=== PATIENT | female | born 1990 | race Caucasian/White ===

== ENCOUNTER 2021-07-23 13:39 | Observation (INO) | payer OTHER, SELFPAY ==
[2021-07-23] MEDS: Lactated Ringers 1,000 ML 125 ML IV (14:00)
[2021-07-23 14:26] VITALS: RESP 22; TEMP 37
--- NOTE | 2021-07-23 14:30 | DI.US_ITS ---
Exam(s) US OB NICOLE WEIGHT EXAM: US OB NICOLE WEIGHT CLINICAL HISTORY: r o abruption. TECHNIQUE: Transabdominal obstetrical ultrasound performed. COMPARISON: US US OB 2-3 TRIMESTER from 05/21/2021 US US OB 2-3 TRIMESTER from 05/21/2021 FINDINGS:: Number of fetuses: One. position: Breech Placental location: Fundal and left-sided. No evidence of previa. No evidence of abruption. Cervix appears intact BIOMETRIC DATA: BPD: 68mm = 27+ 2 weeks HC: 262mm = 28+ 4 weeks AC: 239mm = 28+ 1 weeks FL: 53 mm = 28+ 0 weeks EFW: 1170 Gms = 29% Composite Age: 28 weeks EDC: 15 October 2021 Heart Rate: 149BPM Amniotic fluid index: 11.3 cm. Amount of fluid is within normal limits. IMPRESSION: size and weight are within the expected range. No evidence of abruption. DATA REPOSITORY:
[2021-07-23 14:44] VITALS: BP 118/60; PULSE 89
[2021-07-23 14:45] LABS: HGB 11.8 g/dL (11.2-15.7); MCH 28.6 pg (27.0-33.0); MCHC 32.8 % (32.0-36.0); MCV 87.2 fL (80-95); MPV 10.5 fL (8.0-11.0); Platelet Count 322 10^3/uL (130-400); RBC 4.13 10^6/uL (3.93-5.22); RDW 13.8 % (11.7-14.6); RDW-SD 43.9 fL; WBC 14.57 10^3/uL (4.4-10.8)
--- NOTE | 2021-07-23 15:03 | W.OBCONSULT ---
Date of service: 07/23/21 Time of Service: 15:04 Assessment and Plan Assessment and plan (1) uterine contractions: Status: Acute Assessment and plan: Patient is having irregular contractions without appreciable cervical dilation at this point. She will have his baseline laboratory studies including a urinalysis and urine drug screen. Have ultrasound performed to evaluate placental location and position along with amniotic fluid index. She has received 1 dose of betamethasone. She will have IV hydration. If she continues to have contractions will make cervical change, trial of magnesium washout may be undertaken. If she has need for magnesium sulfate for toco lysis, transfer to tertiary care center would be prudent. Currently, [facility] unable to accept transfer due to nursing past the issues. Patient is not a current candidate for a fibronectin exam due to cervical check. We may reevaluate this in 24 hours. She will be n.p.o. for now. (2) Vaginal bleeding during , antepartum: Status: Acute Assessment and plan: Resolved (3) 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 in third trimester, antepartum: Status: Acute (4) Smoker: Status: Acute (5) Obesity (BMI 30-39.9): Status: Acute History of Present Illness History of Present Illness Chief Complaint: Uterine contractions Narrative: Kindly asked to see by family practice this 31-year-old 17 para 2 0 14 2 who was seen in the primary care office today. She has been getting care at [facility]. She reports 1 week of vaginal spotting and bleeding and approximately 24 hours of uterine activity with irregular contractions. She states that they are becoming more comfortable. On her visit with monitoring at the office was noted to have some uterine contractions. Cervical exam performed there was cervix to be approximately 1 cm 50%. She was sent to our facility today for further monitoring and potential intervention. Preference would have been for tertiary care center, however closest facility being [facility] had no availability in the nursery for potential care of a at 28 weeks. She is sent here as closest facility. On questioning, patient denies fevers or chills. She has had intermittent diarrhea. She has no urinary symptoms. She is 1/2 pack a day smoker. She denies illicit drug use. She states that her care has otherwise been uncomplicated. 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 Her youngest child is 10 years old. Both of her babies were born 5 days prior to her due date without significant complication or issue. She denies any recent trauma, increase in activities, or constitutional symptoms. She states that her baby's been moving and active. She denies loss of fluid. She has no signs or symptoms of preeclampsia though apparently with 1 previous delivery did have some issue with elevated blood pressures. Consults Consult date: 07/23/21 Requesting physician: Robby Farr Review of Systems All systems reviewed & are unremarkable except as noted in HPI and below Constitutional Constitutional: Reports as per HPI, Denies body ache(s), Denies chills, Denies excessive sweating, Denies fatigue, Denies headache(s), Denies malaise, Denies poor appetite and Denies weakness Eyes Eyes: Reports system reviewed and no additional complaints, except as documented ENT Ears, Nose, Mouth, and Throat: Reports system reviewed and no additional complaints, except as documented and Denies headache(s) Cardiovascular Cardiovascular: Reports system reviewed and no additional complaints, except as documented Respiratory Respiratory: Reports system reviewed and no additional complaints, except as documented Gastrointestinal Gastrointestinal: Reports system reviewed and no additional complaints, except as documented, Denies abdominal pain, Reports diarrhea, Reports loose stools, Denies nausea and Denies vomiting Genitourinary Genitourinary: Reports system reviewed and no additional complaints, except as documented and Reports as per HPI Comments: Somewhat painful, irregular contractions Musculoskeletal Musculoskeletal: Reports system reviewed and no additional complaints, except as documented Neurologic Neurologic: Reports system reviewed and no additional complaints, except as documented, Denies headache(s) and Denies weakness Endocrine Endocrine: Reports system reviewed and no additional complaints, except as documented, Denies excessive sweating and Denies fatigue [facility] Medical History (Updated 07/23/21 @ 15:08 by Janet Strong DO) Obesity (BMI 30-39.9) uterine contractions 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 in third trimester, antepartum Smoker Vaginal bleeding during , antepartum Surgical History (Updated 07/23/21 @ 15:09 by Janet Strong DO) History of dilation and curettage Social History Smoking/Tobacco Use Status: Current every day Tobacco Type: cigarettes Tobacco: How many years used: 12 Smoking risk assessment performed?: Yes Drug use: Never History History 17 Para Hx # Term Pregnancies 2 Multiple births Hx # Pregnancies Ectopic pregnancies AB induced Hx Number of Living Children 2 AB spontaneous 14 Exam Narrative Exam Narrative: Patient seen and examined while on the monitor. Baby is moving and active. heart rate tracing reviewed. Occasional irregular contractions. Patient appears somewhat uncomfortable with contractions though they are nonpalpable Const General: cooperative, no acute distress and well developed Nutritional Appearance: obese Orientation: alert and oriented x3 Eyes General: appearance normal, both eyes and all related structures Neck Neck: normal visual inspection and supple Resp Effort & Inspection: normal respiratory effort Cardio Rate: regular rate GI Inspection: normal to inspection and non-distended Palpation: soft, not firm, no guarding and no masses Auscultation: normal bowel sounds OB/External & Speculum: no bleeding and no vulvar tenderness Manual OB Exam: dilated fingertip, effaced 50%, station high and other (No appreciable presenting part) Skin General skin exam: no rashes or lesions noted Extrem General: no clubbing, cyanosis or edema Results Last Vital Signs Temp 98.6 F 07/23/21 14:26 Pulse 89 07/23/21 14:44 Resp 22 07/23/21 14:26 BP 118/60 07/23/21 14:44 Labs Result diagrams: 07/23/21 14:33 Labs: Laboratory Results - last 24 hr 07/23/21 14:33 WBC 14.57 H RBC 4.13 Hgb 11.8 Hct 36.0 MCV 87.2 MCH 28.6 MCHC 32.8 RDW 13.8 Plt Count 322 MPV 10.5
[2021-07-23] MEDS: Betamet Acet/Betamet Na Ph Inj. 30 MG/5 ML 12 MG IM (15:16)
--- NOTE | 2021-07-23 16:35 | DI.VRAD_ITS ---
PROCEDURE INFORMATION: Exam: US , Limited Exam date and time: 07/23/2021 3:46 PM Age: 31 years old Clinical indication: Lmp or gestational age (in weeks): 28+2; Antepartum complications; Other: Cramping \T\ mild bleeding at 28 weeks gestation; TECHNIQUE: Imaging protocol: Real-time ultrasound of the maternal uterus with image documentation. Exam focused on the clinical indication. COMPARISON: US OB 2-3 TRIMESTER 05/21/2021 10:30 AM FINDINGS: Gestation: There is a single live intrauterine gestation. lie: The fetus was in a breech lie at the time of the examination. heart rate: The heart rate was 149 bpm. Placenta: The placenta is fundal. Amniotic fluid index: The amniotic fluid index is within normal limits measuring 11.3 cm. BIOMETRY: Gestational age (AUA): The gestational age based on measurements is 28 weeks and 0 days. The estimated date of delivery based on ultrasound measurements is 10/15/2021. There is concordance with the last menstrual period of 01/06/2021 with a gestational age of 28 weeks and 2 days. Estimated weight: The estimated weight is 1170 g or 2 lb and 9 oz. This is at the 29th percentile. Biparietal diameter: The biparietal diameter measured 6.8 cm corresponding to a gestational age of 27 weeks and 2 days. Head circumference: The head circumference measures 26.2 cm corresponding to a gestational age of 28 weeks and 4 days. Abdominal circumference: The abdominal circumference measured 23.9 cm corresponding to a gestational age of 28 weeks and 1 day. Femur length: The femur length measured 5.3 cm corresponding to a gestational age of 20 weeks and 0 days. IMPRESSION: Single live intrauterine gestation as described above. Please see discussion above. Dictated and Authenticated by: Dickson Adame MD. Ordering:NICOLA Bustamante MD
[2021-07-23 16:40] VITALS: BP 114/56; PULSE 83
--- NOTE | 2021-07-23 17:23 | HPE_ITS ---
Date of service: 07/23/21 Time of Service: 17:23 Assessment and Plan Assessment and plan (1) Vaginal bleeding during , antepartum: Status: Acute Assessment and plan: see below (2) uterine contractions: Status: Acute Assessment and plan: Ultrasound was reassuring without abruption or subchorionic hemorrhage. Baby is breach. She was given 12mg Betamethasone and monitored as well as given IV fluids. Contractions did resolve and she had no cervical change. She has now had no contractions for the last 2 hours. She will be discharged home with strict instructions to call should contractions return. I will follow up with her in clinic on . She was comfortable w ith this plan. OB-HPI Labor/Delivery History of Present Illness Reason for Visit: r/o labor Chief Complaint: Uterine Contractions. RICHARD Calculator Estimated Delivery Date Method Current WG Current Estimate 10/13/21 LMP (Certain) 28w 2d Comments: Breonna is a at 28.2w who presented to clinic this morning with complaints of spotting for a week and contractions for 2 days. She reported bleeding when she wiped or occasionally on the pad. She is feeling movement. Contractions have been increasingly strong for the last 2 days and coming frequently. No recent intercourse or falls. In clinic SVE 11/19/marilu, contractions every 2-3 min lasting 60 sec. I discussed the case with MFM at [facility] [place] who agreed she needed to be monitored however their nursery is full. Dr Strong agreed we could monitor here with IM betamethasone and IV fluids so she presented here. [facility] Medical History (Updated 07/23/21 @ 15:08 by Janet Strong DO) Obesity (BMI 30-39.9) uterine contractions 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 in third trimester, antepartum Smoker Vaginal bleeding during , antepartum Surgical History (Updated 07/23/21 @ 15:09 by Janet Strong DO) History of dilation and curettage Social History Smoking/Tobacco Use Status: Current every day Tobacco Type: cigarettes Years smoked: 12 Tobacco: How many years used: 12 Smoking risk assessment performed?: Yes Alcohol Intake: never Drug use: Never Substance use type: does not use History History 17 Para Hx # Term Pregnancies 2 Multiple births Hx # Pregnancies Ectopic pregnancies AB induced Hx Number of Living Children 2 AB spontaneous 14 Meds Allergies and Home Medications Allergies Allergy/AdvReac Type Severity Reaction Status Date / Time nortriptyline Allergy Intermediate Agitation Unverified 07/23/21 17:33 Home Medications Medication Instructions Recorded Confirmed Type fluoxetine 10 mg PO DAILY 02/04/13 08/14/13 History levonorgestrel [Mirena] 1 ea INTRAUTERINE 02/04/13 08/14/13 History penicillin V potassium 500 mg PO QID #40 tablet 02/04/13 08/14/13 Rx tramadol 50 mg PO Q4H PRN PRN #14 tab 02/04/13 08/14/13 Rx azithromycin 250 mg PO DIRECTED #6 tablet 08/14/13 Rx promethazine-codeine 5 ml PO Q4H #3 oz 08/14/13 Rx Exam Physical Exam Vital signs: Temp Pulse Resp BP 37 C 83 22 114/56 L 07/23/21 14:26 07/23/21 16:40 07/23/21 14:26 07/23/21 16:40 Vital Signs Reviewed: Yes Constitutional Constitutional: no acute distress Detailed Labor and Delivery Exam Dilation: 1 Effacement (%): 10 station: -4 Cervix position: posterior Consistency: firm Anand Score: Cervical Points Exam 0 1 2 3 Dilation Closed 1-2cm 3-4 cm 5-6cm Effacement 0-30% 40-50% 60-70% 80% Consistency Firm Medium Soft Station -3 -2 -1,0 +1,+2 Position Posterior Mid Anterior ANAND Score(Cervical Ripeness Score): 1 Amniotic Membrane Status: Intact Monitor Mode: External Contraction Frequency(min): 3 Contraction Duration(sec): 60 Contraction Intensity: Mild/Moderate Fetus A Heart Rate Baseline: 155 Monitor Accelerations: 10 X 10 Monitor Decelerations: None Variability: Moderate (6-25 BPM) Respiratory Exam Respiratory Exam: Normal Cardiovascular Exam Cardiovascular Exam: Normal Abdominal Exam Abdominal Exam: Normal Exam Exam: Normal Results Abnormal Lab Findings: Abnormal Labs 07/23/21 14:33 WBC 14.57 H Risk Assessment Risks Reviewed Risks Reviewed Upon Admission: Yes
[2021-07-23 22:51] LABS: Bilirubin Negative (Negative); Blood Negative (Negative); Clarity Clear (Clear); Glucose Negative (Negative); Ketones 15 mg/dL (Negative); Leukocyte Esterase Negative (Negative); Nitrite Negative (Negative); Urobilinogen 0.2 EU/dL (Up TO 0.2); pH 7.5 (5-8)
== END 2021-07-23 17:45 | disposition home or self-care (01) ==
PROVIDERS: Admitting Provider Family Medicine; Visit Provider Family Medicine
DX: O47.03 False labor before 37 completed weeks of gestation, third trimester (principal); O46.93 Antepartum hemorrhage, unspecified, third trimester; O99.333 Smoking (tobacco) complicating pregnancy, third trimester; Z3A.28 28 weeks gestation of pregnancy; O99.213 Obesity complicating pregnancy, third trimester; E66.9 Obesity, unspecified; F17.210 Nicotine dependence, cigarettes, uncomplicated
CPT/HCPCS: 36415; 76816; 85027; 86850; 86900; 86901; 96360; 96361; 81003; G0378; J0702

== ENCOUNTER 2021-08-17 16:18 | Observation (INO) | payer OTHER, SELFPAY ==
[2021-08-17] VITALS (8 sets, daily range): BP systolic 106–114; BP diastolic 56–66; PULSE 83–92; RESP 16; TEMP 36.6–36.8; O2SAT 94–99
[2021-08-17 16:46] LABS: HCT 35.1 % (36.0-46.0); HGB 11.5 g/dL (11.2-15.7); MCH 28.5 pg (27.0-33.0); MCHC 32.8 % (32.0-36.0); MCV 86.9 fL (80-95); MPV 10.2 fL (8.0-11.0); Platelet Count 343 10^3/uL (130-400); RBC 4.04 10^6/uL (3.93-5.22); RDW 14.2 % (11.7-14.6); RDW-SD 44.9 fL; WBC 17.97 10^3/uL (4.4-10.8)
[2021-08-17 17:09] LABS: ROM Plus Negative
--- NOTE | 2021-08-17 17:12 | NUR.NOTE ---
OBEY, Rn placed IV in left hand. LR running at 500 ml (bolus) per MD JOLANTA tele orer at 1700. Nursing Note:
--- NOTE | 2021-08-17 17:53 | W.PM.OBHPL1 ---
Date of service: 08/17/21 Time of Service: 17:53 Assessment and Plan Assessment and plan (1) Obesity (BMI 30-39.9): Status: Acute (2) uterine contractions: Status: Acute (3) 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 in third trimester, antepartum: Status: Acute (4) : Status: Acute Assessment and plan: Breonna is seen for contractions and possible PPROM. ROM+ was negative, exam consistent with vaginal candidiasis,which we will treat with Monistat. IV was placed an 1L LR given as a bolus for contractions x2. Feta fibronectin negative as was COVID PCR negative. After 1500cc of fluid in, contractions resolved. We discussed increased daily hydration at home. After no contractions for more than 90min, she was discharged home. She knows to call if contractions return. Qualifiers: Weeks of gestation: 31 weeks Qualified Code(s): Z3A.31 - 31 weeks gestation of OB-HPI Labor/Delivery History of Present Illness Reason for Visit: Rule out labor Chief Complaint: Uterine Contractions; Suspected Rupture of Membranes , Associated Signs and Symptoms of Suspected ROM: gush of fluid. RICHARD Calculator Estimated Delivery Date Method Current WG Current Estimate 10/13/21 LMP (Certain) 31w 6d Comments: Breonna is a at 31.6w who presented to clinic this afternoon with contractions for the last 2 days and concern for SROM. In clinic, she was feliciano irregularly. Sterile spec exam showed closed cervix, no pooling, nitrizine negative. However given she had a similar presentation several weeks ago, and her ongoing contractions, she was sent here for monitoring. She was also complaining of decreased movement. ON LICENSE OF [facility] Medical History (Updated 08/17/21 @ 17:59 by Robby Farr) Obesity (BMI 30-39.9) uterine contractions 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 in third trimester, antepartum Smoker Vaginal bleeding during , antepartum Surgical History (Updated 07/23/21 @ 15:09 by Janet Strong DO) History of dilation and curettage Social History Smoking/Tobacco Use Status: Current every day Tobacco Type: cigarettes Years smoked: 12 Tobacco: How many years used: 12 Smoking risk assessment performed?: Yes Alcohol Intake: never Drug use: Never Substance use type: does not use History History 17 Para Hx # Term Pregnancies 2 Multiple births Hx # Pregnancies Ectopic pregnancies AB induced Hx Number of Living Children 2 AB spontaneous 14 Meds Allergies and Home Medications Allergies Allergy/AdvReac Type Severity Reaction Status Date / Time amitriptyline Allergy Intermediate Agitation Unverified 07/23/21 19:04 nortriptyline Allergy Intermediate Agitation Unverified 07/23/21 17:33 Home Medications Medication Instructions Recorded Confirmed Type fluoxetine 10 mg PO DAILY 02/04/13 08/14/13 History levonorgestrel [Mirena] 1 ea INTRAUTERINE 02/04/13 08/14/13 History penicillin V potassium 500 mg PO QID #40 tablet 02/04/13 08/14/13 Rx tramadol 50 mg PO Q4H PRN PRN #14 tab 02/04/13 08/14/13 Rx azithromycin 250 mg PO DIRECTED #6 tablet 08/14/13 Rx promethazine-codeine 5 ml PO Q4H #3 oz 08/14/13 Rx aspirin [Aspirin For Children] 81 mg PO 07/23/21 History [id number] 1 tab PO 07/23/21 History [ + Iron] Exam Physical Exam Vital signs: Temp Pulse BP Pulse Ox 36.8 C 90 114/56 L 94 08/17/21 17:40 08/17/21 16:32 08/17/21 16:32 08/17/21 16:30 Vital Signs Reviewed: Yes Constitutional Constitutional: mild distress Detailed Labor and Delivery Exam Dilation: 0 station: -4 Cervix position: posterior Arce Score: Cervical Points Exam 0 1 2 3 Dilation Closed 1-2cm 3-4 cm 5-6cm Effacement 0-30% 40-50% 60-70% 80% Consistency Firm Medium Soft Station -3 -2 -1,0 +1,+2 Position Posterior Mid Anterior Amniotic Membrane Status: Intact ROM Plus: Negative Monitor Mode: External Contraction Frequency(min): 4 Contraction Duration(sec): 60 Contraction Intensity: Mild Fetus A Heart Rate Baseline: 150 Monitor Accelerations: 15 X 15 Monitor Decelerations: None Variability: Moderate (6-25 BPM) Categories: Category I HEENT Exam HEENT Exam: Normal Breast Exam Breast Exam: Normal Respiratory Exam Respiratory Exam: Normal Cardiovascular Exam Cardiovascular Exam: Normal Abdominal Exam Abdominal Exam: Normal Extremities Exam Extremities Exam: Normal Neurological Exam Neurological Exam: Normal Psychiatric Exam Psychiatric Exam: Normal Results Abnormal Lab Findings: Abnormal Labs 08/17/21 16:35 WBC 17.97 H Hct 35.1 L Risk Assessment Risk for Pre-Eclampsia Daily Dose ASA Indicated: Yes Risks Reviewed Risks Reviewed Upon Admission: Yes
[2021-08-17 17:55] LABS: Source Nasal/Nares
[2021-08-17 18:04] LABS: Bilirubin Negative (Negative); Blood Negative (Negative); Clarity Clear (Clear); Glucose Negative (Negative); Ketones 15 mg/dL (Negative); Leukocyte Esterase Negative (Negative); Nitrite Negative (Negative)
[2021-08-17 18:06] LABS: Fetal Fibronectin Negative (Negative)
[2021-08-17 18:44] LABS: COVID-19 PCR Negative (Negative)
== END 2021-08-17 20:00 ==
LOC: OBS 08-20 10:38
PROVIDERS: Admitting Provider Family Medicine; Visit Provider Family Medicine
DX: O47.03 False labor before 37 completed weeks of gestation, third trimester (principal); Z3A.31 31 weeks gestation of pregnancy; O99.333 Smoking (tobacco) complicating pregnancy, third trimester; F17.210 Nicotine dependence, cigarettes, uncomplicated; O99.213 Obesity complicating pregnancy, third trimester; E66.9 Obesity, unspecified
CPT/HCPCS: 84112; 85027; 86850; 86900; 86901; 87635; 96360; 81003; 82731

== ENCOUNTER 2021-09-17 20:25 | Observation (INO) | payer OTHER, SELFPAY ==
[2021-09-17 21:47] LABS: Source Nasal/Nares
[2021-09-17 22:02] LABS: ROM Plus Negative
[2021-09-17 22:07] VITALS: BP 100/54; PULSE 82; RESP 16; TEMP 36.5
--- NOTE | 2021-09-17 22:10 | HPE_ITS ---
Date of service: 09/17/21 Time of Service: 22:10 Assessment and Plan Assessment and plan (1) : Status: Acute Assessment and plan: After 1L LR bolus, Myles contractions have stopped. She feels comfortable now. Discussed again the need for increased hydration as she is clearly quite sensitive to any level of dehydration. She knows to call me should contractions start again at any time. Will DC home now with those instructions. Fup in clinic in 1 week or sooner if needed. Qualifiers: Weeks of gestation: 36 weeks Qualified Code(s): Z3A.36 - 36 weeks gestation of (2) uterine contractions: Status: Acute (3) Smoker: Status: Acute OB-HPI Labor/Delivery History of Present Illness Reason for Visit: RULE OUT PRE-TERM LABOR Chief Complaint: Uterine Contractions. RICHARD Calculator Estimated Delivery Date Method Current WG Current Estimate 10/13/21 LMP (Certain) 36w 2d History of Present Expected Delivery Route/Plan 31y at 36.2w with Rh+ GBS- RI presented to clinic today with contractions since the morning. She was evaluated in clinic and SVE /-/ with contractions every 4-7min. She rested at home but continued to contract with increase in intensity and frequency and increase vaginal pressure. She presented her for eval with minimal cervical change despite appearing quite uncomfortable. She did report significant fluid with her pants soaked just before leaving the house, but ROM+ is negative. She has presented similarly several times and contractions resolved with IV hydration, so we will try the same now. FHT with mild tachycardia but reactive, moderate variability, category 1. Moms temp is normal, BP normal. Monitor for labor rule out. Review of Systems All systems reviewed & are unremarkable except as noted in HPI and below [facility] Medical History (Updated 09/17/21 @ 22:20 by Robby Farr) Obesity (BMI 30-39.9) uterine contractions 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 in third trimester, antepartum Smoker Vaginal bleeding during , antepartum Surgical History (Updated 07/23/21 @ 15:09 by Janet Strong DO) History of dilation and curettage Social History Smoking/Tobacco Use Status: Current every day Tobacco Type: cigarettes Years smoked: 12 Tobacco: How many years used: 12 Smoking risk assessment performed?: Yes Alcohol Intake: never Drug use: Never Substance use type: does not use Do you feel safe at home: Yes Do you feel safe in your relationship?: Yes History History 17 Para 2 Hx # Term Pregnancies 2 Multiple births Hx # Pregnancies Ectopic pregnancies AB induced Hx Number of Living Children 2 AB spontaneous 14 Meds Allergies and Home Medications Allergies Allergy/AdvReac Type Severity Reaction Status Date / Time amitriptyline Allergy Intermediate Agitation Unverified 07/23/21 19:04 nortriptyline Allergy Intermediate Agitation Unverified 07/23/21 17:33 Home Medications Medication Instructions Recorded Confirmed Type fluoxetine 10 mg PO DAILY 02/04/13 08/14/13 History levonorgestrel [Mirena] 1 ea INTRAUTERINE 02/04/13 08/14/13 History penicillin V potassium 500 mg PO QID #40 tablet 02/04/13 08/14/13 Rx tramadol 50 mg PO Q4H PRN PRN #14 tab 02/04/13 08/14/13 Rx azithromycin 250 mg PO DIRECTED #6 tablet 08/14/13 Rx promethazine-codeine 5 ml PO Q4H #3 oz 08/14/13 Rx aspirin [Aspirin For Children] 81 mg PO 07/23/21 History [id number] 1 tab PO 07/23/21 History [ + Iron] Exam Physical Exam Vital signs: Pulse BP 82 100/54 L 09/17/21 22:07 09/17/21 22:07 Vital Signs Reviewed: Yes Constitutional Constitutional: mild distress Detailed Labor and Delivery Exam Dilation: 3 Effacement (%): 50 station: -3 Cervix position: posterior Consistency: medium Anand Score: Cervical Points Exam 0 1 2 3 Dilation Closed 1-2cm 3-4 cm 5-6cm Effacement 0-30% 40-50% 60-70% 80% Consistency Firm Medium Soft Station -3 -2 -1,0 +1,+2 Position Posterior Mid Anterior ANAND Score(Cervical Ripeness Score): 4 Amniotic Membrane Status: Intact ROM Plus: Negative Monitor Mode: External Contraction Frequency(min): 5 Contraction Intensity: Mild/Moderate Fetus A Heart Rate Baseline: 165 Monitor Accelerations: 15 X 15 Monitor Decelerations: None Variability: Moderate (6-25 BPM) Presentation: Cephalic Categories: Category I HEENT Exam HEENT Exam: Normal Abdominal Exam Abdominal Exam: Normal Exam Exam: Normal Extremities Exam Extremities Exam: Abnormal (trace edema) Neurological Exam Neurological Exam: Normal Results Results Group Beta Strep: Negative Blood Type: O+ Rubella Status: Immune Varicella Immunity: Not Tested Risk Assessment Risks Reviewed Risks Reviewed Upon Admission: Yes
[2021-09-17] MEDS: Normal Saline Flush 10 ML SYR IVP ×2 (22:45→22:54)
[2021-09-17] MEDS: Lactated Ringers 1,000 ML 250 ML IV (22:45)
[2021-09-17 23:04] VITALS: BP 111/65; PULSE 103; TEMP 36.7
[2021-09-17 23:23] LABS: COVID-19 PCR Negative (Negative)
== END 2021-09-18 00:26 | disposition home or self-care (01) ==
PROVIDERS: Admitting Provider Family Medicine; Visit Provider Family Medicine
DX: O47.03 False labor before 37 completed weeks of gestation, third trimester (principal); Z3A.36 36 weeks gestation of pregnancy; O99.333 Smoking (tobacco) complicating pregnancy, third trimester; O99.213 Obesity complicating pregnancy, third trimester; F17.210 Nicotine dependence, cigarettes, uncomplicated; E66.9 Obesity, unspecified; Z20.822 Contact with and (suspected) exposure to COVID-19
CPT/HCPCS: 84112; 87635; 96360; 96361; 59025; G0378

== ENCOUNTER 2021-09-26 09:00 | Observation (INO) | payer OTHER, SELFPAY ==
[2021-09-26 09:09] VITALS: BP 116/72; PULSE 82; RESP 18; TEMP 36.9
[2021-09-26 09:41] LABS: HCT 39.9 % (36.0-46.0); MCH 27.8 pg (27.0-33.0); MCHC 32.6 % (32.0-36.0); MCV 85.4 fL (80-95); MPV 10.1 fL (8.0-11.0); Platelet Count 444 10^3/uL (130-400); RBC 4.67 10^6/uL (3.93-5.22); RDW 15.4 % (11.7-14.6); RDW-SD 47.5 fL; WBC 19.63 10^3/uL (4.4-10.8)
[2021-09-26] MEDS: Lactated Ringers 1,000 ML 125 ML IV (09:44)
[2021-09-26] MEDS: Normal Saline Flush 10 ML SYR IVP (09:45)
[2021-09-26 09:51] LABS: Source Nasal/Nares
[2021-09-26 10:23] VITALS: BP 111/58; PULSE 60
[2021-09-26] MEDS: Terbutaline 1 MG/ML VIAL 0.25 MG SC (10:23)
[2021-09-26 10:28] VITALS: BP 111/58; PULSE 60; RESP 16; TEMP 36.9
[2021-09-26 10:46] LABS: COVID-19 PCR Negative (Negative)
[2021-09-26 10:48] VITALS: BP 115/55; PULSE 71; RESP 16; TEMP 36.7
[2021-09-26 10:52] VITALS: BP 115/55; PULSE 71
--- NOTE | 2021-09-26 11:12 | HPE_ITS ---
Date of service: 09/26/21 Time of Service: 11:13 Assessment and Plan Assessment and plan (1) Breech presentation: Status: Acute Assessment and plan: Admission, IVF, anesthesia consult, peds and OR aware , labs drawn Will plan for terbutaline, then ECV with ultrasound guidance. OB-HPI Labor/Delivery History of Present Illness Reason for Visit: Version Chief Complaint: Other (breech presentation). RICHARD Calculator Estimated Delivery Date Method Current WG Current Estimate 10/13/21 LMP (Certain) 37w 4d History of Present Expected Delivery Route/Plan 31y at 37.4w with Rh+ GBS- here for scheduled ECV due to breech presentation. Review of Systems Genitourinary Genitourinary: Reports system reviewed and no additional complaints, except as documented [facility] Active Problem List (Updated 09/26/21 @ 12:06 by Danyell Sr MD) Breech presentation (Acute) (Acute) Smoker (Acute) Obesity (BMI 30-39.9) (Acute) uterine contractions (Acute) 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 in third trimester, antepartum (Acute) Medical History (Updated 09/26/21 @ 12:06 by Danyell Sr MD) Vaginal bleeding during , antepartum Surgical History (Updated 07/23/21 @ 15:09 by Janet Strong DO) History of dilation and curettage Social History Smoking/Tobacco Use Status: Current every day Tobacco Type: cigarettes Years smoked: 12 Tobacco: How many years used: 12 Smoking risk assessment performed?: Yes Alcohol Intake: never Drug use: Never Substance use type: does not use Do you feel safe at home: Yes Do you feel safe in your relationship?: Yes History History 17 Para 2 Hx # Term Pregnancies 2 Multiple births Hx # Pregnancies Ectopic pregnancies AB induced Hx Number of Living Children 2 AB spontaneous 14 Meds Allergies and Home Medications Allergies Allergy/AdvReac Type Severity Reaction Status Date / Time amitriptyline Allergy Intermediate Agitation Unverified 07/23/21 19:04 nortriptyline Allergy Intermediate Agitation Unverified 07/23/21 17:33 Home Medications Medication Instructions Recorded Confirmed Type fluoxetine 10 mg PO DAILY 02/04/13 09/17/21 History levonorgestrel [Mirena] 1 ea INTRAUTERINE 02/04/13 08/14/13 History penicillin V potassium 500 mg PO QID #40 tablet 02/04/13 09/17/21 Rx tramadol 50 mg PO Q4H PRN PRN #14 tab 02/04/13 09/17/21 Rx azithromycin 250 mg PO DIRECTED #6 tablet 08/14/13 09/17/21 Rx promethazine-codeine 5 ml PO Q4H #3 oz 08/14/13 09/17/21 Rx aspirin [Aspirin For Children] 81 mg PO 07/23/21 History uusiogik-qyv-Ve-FA 1 tab PO 07/23/21 History [ + Iron] Exam Physical Exam Vital signs: Temp Pulse Resp BP 98.1 F 71 16 115/55 L 09/26/21 10:48 09/26/21 10:52 09/26/21 10:48 09/26/21 10:52 Constitutional Constitutional: no acute distress and cooperative Detailed Labor and Delivery Exam Arce Score: Cervical Points Exam 0 1 2 3 Dilation Closed 1-2cm 3-4 cm 5-6cm Effacement 0-30% 40-50% 60-70% 80% Consistency Firm Medium Soft Station -3 -2 -1,0 +1,+2 Position Posterior Mid Anterior Detailed HEENT Exam Head: Present normocephalic and atraumatic Respiratory Exam Respiratory Exam: Normal Abdominal Exam Abdominal Exam: Normal (gravid, mildly tender throughout abdominal exam. Breech by bedside sono) Detailed Neurological Exam Neurological: Present alert, oriented X3 and CN II-XII intact Results Results Group Beta Strep: Negative Blood Type: O+ Rubella Status: Immune Varicella Immunity: Not Tested Abnormal Lab Findings: Abnormal Labs 09/26/21 09:20 WBC 19.63 H RDW 15.4 H Plt Count 444 H Risk Assessment Risks Reviewed Risks Reviewed Upon Admission: Yes
--- NOTE | 2021-09-26 12:08 | W.OBVERSION ---
Date of service: 09/26/21 Time of Service: 12:08 Version Note Version Note DATE OF PROCEDURE: 09/26/21 PRE-OP DIAGNOSES: Breech presentation POST-OP DIAGNOSES: same PROCEDURE: External cephalic version SURGEON: Danyell Sr Assisting Surgeon: Janet Srtong Anesthesia: none Complications: None Patient's condition: stable Procedure Description: After Terbutaline was given several attempts were made to bring the breech out of the pelvis and rotate the baby. The patient had significant discomfort with minimal pressure on the lower abdomen and was only able to tolerate short attempts. Attempts were made to rotate both forwards and backwards and they were unsuccessful. The patient opted to end the procedure then due to her discomfort. Pre/Post Procedure NST Pre-Procedure NST Time on Monitor: 83 Patient States Movement: Present FHR Baseline: 145 Variability: Moderate 6-25 bpm Decelerations: None NST Results: Reactive Post Procedure NST Patient States Movement: Present Variability: Moderate 6-25 bpm Decelerations: None NST Results: Reactive
--- NOTE | 2021-10-03 16:46 | W.PM.DSUDISC ---
Discharge Plan Disposition Patient Disposition: HOME Condition: Stable Discharge Details Reason For Visit: Version Admit Date/Time: 09/26/21 09:00 Admit Provider: Danyell Sr Attending Provider: Danyell Sr Primary Care Provider: None,None Hospital Course Hospital Course: Pt arrived at the Center and was prepared for ECV. She underwent the procedure which was unsuccessful. She was observed for 2hrs with reactive FHT and decreased contractions compared to prior the procedure. Home Meds and New Rx's Prescriptions: Continued fluoxetine 10 MG capsule 10 mg PO DAILY RF: 0 tramadol 50 MG tablet 50 mg PO Q4H PRN PRNQty: 14 RF: 0 promethazine-codeine 5 ML syrup 5 ml PO Q4H Qty: 3 RF: 0 coffhvdt-mrw-Xf-FA 1 mg Tablet 1 tab PO RF: 0 aspirin 81 mg Tablet,Chewable 81 mg PO RF: 0 Discontinued Mirena 1 EACH intrauterine device 1 ea Intrauterine RF: 0 penicillin V potassium 500 MG tablet 500 mg PO QID Qty: 40 RF: 0 azithromycin 250 MG tablet 250 mg PO DIRECTED Qty: 6 RF: 0 Discharge Instructions Instructions: Early Labor Signs (DC) Activity:: Activity as Tolerated Equipment/Supplies:: No Equipment Needed Diet:: As Tolerated Discharge Orders Discharge Orders: Discharge Order (Routine); Ordered 09/26/21 Ordered By: Danyell Sr Discharge Data Discharge Date/Time-TO BE ENTERED AT DEPARTURE: 09/26/21 13:00 DS: Diagnosis Discharge Diagnosis (1) Breech presentation: Status: Acute
== END 2021-09-26 13:00 | disposition home or self-care (01) ==
PROVIDERS: Admitting Provider Obstetrics & Gynecology; Visit Provider Obstetrics & Gynecology
DX: O32.1XX0 Maternal care for breech presentation, not applicable or unspecified (principal); Z3A.37 37 weeks gestation of pregnancy; O99.333 Smoking (tobacco) complicating pregnancy, third trimester; F17.210 Nicotine dependence, cigarettes, uncomplicated; O99.213 Obesity complicating pregnancy, third trimester; E66.9 Obesity, unspecified; Z20.822 Contact with and (suspected) exposure to COVID-19
CPT/HCPCS: 59412; 36415; 85027; 86850; 86900; 86901; 87635; G0378

== ENCOUNTER 2021-10-05 09:38 | Inpatient (IN) | payer OTHER, SELFPAY ==
[2021-10-05] VITALS (12 sets, daily range): BP systolic 98–136; BP diastolic 57–68; PULSE 60–81; RESP 16–24; TEMP 36.4–37.1; O2SAT 96–98; BMI 38.8
--- OUTSIDE RECORDS SUMMARY | 2021-10-05 10:24 | XMS_ITS ---
:1990 Author Care Team Providers Name Role Phone DR. CARTY Primary Care Provider Unavailable DR. CARTY Referring Provider Unavailable NICO BRAMBILA MD Primary Care Provider Unavailable Allergies Code Code System Name Reaction Severity Status Onset 704 RxNorm Amitriptyline ? ? Active ? 2556 RxNorm Citalopram ? ? Active ? 7531 RxNorm Nortriptyline ? ? Active ? Medications Name Status Start Date Stop Date ? ? cyclobenzaprine 10 mg tablet Completed ? Take 1 tablet every 12 hours by oral route as needed. hydroxyzine HCl 10 mg tablet Active 03/30/2021 Not available Take 1 tablet by oral route as needed. ketorolac 10 mg tablet Completed ? 8 Take 1 tablet every 8 hours by oral route as needed. lidocaine 5 % topical patch Completed ? 07/12 APPLY 1 PATCH BY TRANSDERMAL ROUTE ONCE DAILY (MAY WEAR UP TO 1 2HOURS.) prednisone 20 mg tablet Completed ? 03/30/20 21 Take 1 tablet every day by oral route. Active ? Not available Ventolin HFA 90 mcg/actuation aerosol inhaler Active ? Not available Inhale 2 puffs every 4 hours by inhalation route. Zithromax Z-Luis Manuel 250 mg tablet Completed ? TAKE 2 TABLETS (500 MG) BY ORAL ROUTE O NCE DAILY FOR 1 DAY THEN 1 TABLET (250 MG) BY ORAL ROUTE ONCE DAILY FOR 4 DAYS Problems Name Status Onset Date Source ? Recurrent Major Depressive Episodes, Moderate Active ? Anxiety Active 10/17/2016 ? Acute Back Pain with Sciatica Active 02/04/2018 ? Obsessive-compulsive Disorder Active 08/04/2018 ? Tobacco User Active ? ? Depression Active ? ? Procedures Date Name Performed by ? 09/29/2018 US, Breast, Bilateral, Limited [facility] - [facility] [address] [place] [address] (Work Place) 03/30/2021 XR, Tibia + Fibula [facility] R adiology [address] [place] [id number] (Work Place) 03/30/2021 XR, Foot, 3 or More View [facility] l - Radiology [address] [place] [id number] (Work Place) Notes: D & C twice LEEP aleksander on Results Lab Results Date Name Specimen Result Interpretation Description Value Range Status Address ? 02/24/2021 Type + S ? Abo 0 ? Final [facility] Blood Laboratory & Pathology: [address] [place] [address] ? ? S ? Rh positive ? Final [facility] Laboratory & Pathology: [address] [place] [address] ? ? S Normal Antibody negative negative Final [facility] Laboratory & Pathology: [address] [place] [address] ? ? S ? Bb asrt 0253 ? Final [facility] Bracelet Id Hospi yang Laboratory & Pathology: [address] [place] [address] 02/24/2021 P ? Bhcg 6314 ? Final [facility] Test, Serum mIU/mL Hospi yang or Plasma Laborat ory & Pathology: [address] [place] [address] 02/24/2021 CBC W/ Auto WB Normal Wbc 9.5 4.8-10.8 Final [facility] Diff 10^3/mm^3 10^3/mm^3 Hosp ital Laboratory & Pathology: [address] [place] [address] ? ? WB Normal Rbc 5.00 3.90-5.03 Final [facility] 10^6/mm^3 10^6/mm^3 Hosp ital Laboratory & Pathology: [address] [place] [address] ? ? WB High Hgb 15.6 g/dL 12.0-15.5 Final [facility] g/dL Hospital Laboratory & Pathology: [address] [place] [address] ? ? WB High Hct 47 % 36-46 % Final [facility] Laboratory & Pathology: [address] [place] [address] ? ? WB Normal Mcv 94.0 fL 81.0-99.0 Final [facility] Laboratory & Pathology: [address] [place] [address] ? ? WB Normal Mch 31.2 pg 27.1-32.0 Final [facility] Laboratory [facility] Pathology: [address] [place] [address] ? ? WB Normal Mchc 33 g/dL 33-36 Final [facility] g/dL Hospital Laboratory & Pathology: [address] [place] [address] ? ? WB Normal Rdw 13.9 % 11.6-14.8 Final [facility] Laboratory & Pathology: [address] [place] [address] ? ? WB Normal Platelets 315 150-400 Final [facility] [facility] 10^3/mm^3 10^3/mm^3 Hosp ital Laboratory & Pathology: [address] [place] [address] ? ? WB High Ne# 6.83 1.20-6.70 Final [facility] 10^3/mm^3 10^3/mm^3 Hosp ital Laboratory & Pathology: [address] [place] [address] ? ? WB Normal Ly# 2.01 1.20-3.40 Final [facility] 10^3/mm^3 10^3/mm^3 Hosp ital Laboratory & Pathology: [address] [place] [address] ? ? WB Normal Mo# 0.38 0.11-0.70 Final [facility] 10^3/mm^3 10^3/mm^3 Hosp ital Laboratory & Pathology: [address] [place] [address] ? ? WB Normal Eo# 0.23 0.00-0.70 Final [facility] 10^3/mm^3 10^3/mm^3 Hosp ital Laboratory & Pathology: [address] [place] [address] ? ? WB Normal Ba# 0.07 0.00-0.20 Final [facility] 10^3/mm^3 10^3/mm^3 Hosp ital Laboratory & Pathology: [address] [place] [address] ? ? WB Normal Neut% 72 % per 40-74 % Final [facility] 100 WBC per 100 Hospital WBC Laboratory & Pathology: [address] [place] [address] ? ? WB Normal Ly% 21 % per 19-48 % Final [facility] 100 WBC per 100 Hospital WBC Laboratory & Pathology: [address] [place] [address] ? ? WB Normal Mo% 4.0 % per 3.0-10.0 Final [place] 100 WBC % per 100 Hospit al WBC Laboratory & Pathology: [address] [place] [address] ? ? WB Normal Eo% 2.4 % per 1.0-7.0 % Final [facility] 100 WBC per 100 Hospital WBC Laboratory & Pathology: [address] [place] [address] ? ? WB Normal Ba% 0.7 % per 0.0-2.0 % Final [facility] 100 WBC per 100 Hospital WBC Laboratory & Pathology: [address] [place] [address] 02/24/2021 Choriogonad U ABNORMAL Uhcg positive negative Fi nal [facility] otropin, Hospital Qual, Urine Labor atory & Pathology: [address] [place] [address] 08/18/2018 Choriogonad ? HCG negative ? Final [facility] otropin, Screen, Hospita l Qual, Urine Urine Labor atory & Pathology: [address] [place] [address] Past Encounters 03/30/2021 Pain in Left Knee Terrence Zhang MD: [address] [place] [phone], Ph. Social History Tobacco Smoking Status Current Every Day Smoker Notes: Vaccine List None recorded. Plan of Care Reminders Provider Appointments None ? ? recorded. Lab None ? ? recorded. Referral None ? ? recorded. Procedures None ? ? recorded. Surgeries None ? ? recorded. Imaging None ? ? recorded. Vitals 03/30/2021 11:50AM ORTHO 20 NEW PATIENT Height Weight BMI 154.94 cm 97.07 kg 40.4 kg/m2 08/27/2018 03:00PM FOLLOW UP Height Weight BMI Blood Pressure 162.56 cm 96.16 kg 36.4 kg/m2 110/64 mm[Hg] 08/03/2018 01:15PM H&P Height Weight BMI Blood Pressure 162.56 cm 96.16 kg 36.4 kg/m2 118/58 mm[Hg]
[2021-10-05] MEDS: Lactated Ringers 1,000 ML 1000 ML IV ×2 (10:56→12:48)
--- NOTE | 2021-10-05 12:44 | ANES.PREOP_ITS ---
General Info Date of Service Date Performed: 10/05/21 Height: 5 ft 3 in Weight: 99.4 kg Body Mass Index (BMI): 38.8 Meds Allergies and Home Medications Allergies Allergy/AdvReac Type Severity Reaction Status Date / Time amitriptyline Allergy Intermediate Agitation Unverified 10/05/21 12:05 nortriptyline Allergy Intermediate Agitation Unverified 10/05/21 12:05 Home Medication Medication Instructions Recorded fluoxetine 10 mg PO DAILY 02/04/13 tramadol 50 mg PO Q4H PRN PRN #14 tab 02/04/13 promethazine-codeine 5 ml PO Q4H #3 oz 08/14/13 aspirin 81 mg PO 07/23/21 [id number] 1 tab PO 07/23/21 clindamycin HCl 600 mg PO 4-6XD 10/05/21 PFSH Active Problems Active Problems: Problem Status Onset Code Breech presentation O32.1XX0 Z34.90 Smoker F17.200 Obesity (BMI 30-39.9) E66.9 uterine contractions O47.00 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 in third trimester, antepartum O26.23 Medical History Active Problem List (Updated 10/05/21 @ 13:25 by Robby Farr) Breech presentation (Acute) (Acute) Smoker (Acute) Obesity (BMI 30-39.9) (Acute) uterine contractions (Acute) 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 in third trimester, antepartum (Acute) Medical History (Updated 10/05/21 @ 13:25 by Robby Farr) Vaginal bleeding during , antepartum Surgical History Surgical History (Updated 07/23/21 @ 15:09 by Janet Strong DO) History of dilation and curettage Tobacco Smoking/Tobacco Use Status: Current every day Tobacco Type: cigarettes Smoking packs per day: 0.5 Years smoked: 16 Tobacco: How many years used: 12 Alcohol Alcohol Intake: never Substance Use Substance use: Never Substance use type: does not use Prental History History 17 Para 2 Hx # Term Pregnancies 2 Multiple births Hx # Pregnancies Ectopic pregnancies AB induced Hx Number of Living Children 2 AB spontaneous 14 Vital Signs and Lab Results Vital Signs Most Recent Vital Signs in EMR: Most Recent Vital Signs Temp Pulse Resp BP 36.7 C 71 24 102/57 L 10/05/21 11:01 10/05/21 11:08 10/05/21 11:01 10/05/21 11:08 Lab Results Blood Type / Crossmatch: Patient ABO/Rh O Positive 09/26/21 09:20 09/26/21 Antibody Screen NEGATIVE 09/26/21 09:20 09/26/21 Complete Blood Count: White Blood Count 19.63 10^3/uL (4.4-10.8) H 09/26/21 09:20 09/26/21 Red Blood Count 4.67 10^6/uL (3.93-5.22) 09/26/21 09:20 09/26/21 Hemoglobin 13.0 g/dL (11.2-15.7) 09/26/21 09:20 09/26/21 Hematocrit 39.9 % (36.0-46.0) 09/26/21 09:20 09/26/21 Platelet Count 444 10^3/uL (130-400) H 09/26/21 09:20 09/26/21 Complete Metabolic Panel: No Data to Display Liver Function Panel: No Data to Display Coagulation Panel: 2 No Data to Display Cardiac Panel: No Data to Display Arterial Blood Gas: No Data to Display Venous Blood Gas: No Data to Display Pancreas Panel: No Data to Display Thyroid Panel: No Data to Display Infectious Disease: Coronavirus (COVID-19)(PCR) Negative (Negative) 09/26/21 09:40 09/26/21 Coronavirus 2019 Source Nasal/Nares 09/26/21 09:40 09/26/21 Blood Cultures: No Data to Display Toxicology Panel: No Data to Display Panel: No Data to Display Anesthesia Assessment and Plan Anesthesia History Personal History: No History of Anesthesia Complications Family History: No Family History of Anesthesia Complications Exercise Tolerance Exercise Tolerance: Metabolic Equivalents>4 Pertinent Negatives Pertinent Negatives: No Symptoms of GERD, No Major Cardiovascular Symptoms or Complaints and No Major Pulmonary Symptoms or Complaints Cardiac & Pulmonary Exam Cardiac Exam: Normal S1/S2 Heart Sounds Pulmonary Exam: Clear Bilateral Breath Sounds Implantable Cardiac Device Does patient have a Pacemaker or an ICD?: No Airway Exam Known Difficult Airway: No Mallampati Class: 3 Mouth Opening: Normal (> 3cm) Thyromental Distance: Greater than 3 cm Neck Range of Motion: Full ROM Neck Circumference: Normal Teeth Condition: Edentulous ASA Classification ASA Score: ASA 2 Emergency Case?: No NPO Status NPO Status: Full Stomach Status Status: Confirmed Anesthesia Plan Resuscitation Status: Full Code Anesthesia Technique: Spinal Anesthesia Airway Planned: Natural Airway Monitors Used: Standard Monitors
[2021-10-05 13:08] LABS: Source Nasal/Nares
[2021-10-05 13:08] LABS: HCT 38.5 % (36.0-46.0); HGB 12.4 g/dL (11.2-15.7); MCH 27.3 pg (27.0-33.0); MCHC 32.2 % (32.0-36.0); MCV 84.8 fL (80-95); MPV 10.4 fL (8.0-11.0); Platelet Count 398 10^3/uL (130-400); RBC 4.54 10^6/uL (3.93-5.22); RDW 15.6 % (11.7-14.6); RDW-SD 47.6 fL; WBC 17.69 10^3/uL (4.4-10.8)
[2021-10-05] MEDS: ceFAZolin 2 GM/50 ML BAG IVPB (13:17)
--- NOTE | 2021-10-05 13:20 | W.PM.OBHPL1 ---
Date of service: 10/05/21 Time of Service: : Assessment and Plan Assessment and plan (1) Breech presentation: Status: Acute Qualifiers: Fetus number: single or unspecified fetus Qualified Code(s): O32.1XX0 - Maternal care for breech presentation, not applicable or unspecified (2) : Status: Acute Assessment and plan: 31y at 38.6w with Rh+ GBS- RI presented in early labor with baby in breech position confirmed by US today. Was scheduled for primary section Friday so given early labor will proceed to OR now. has been complicated only by 3 episodes of possible labor that resolved with time and fluids. She is a smoker and obese. Otherwise no significant risk factors. Dr Maza is here and agrees with plan. Qualifiers: Weeks of gestation: 36 weeks Qualified Code(s): Z3A.36 - 36 weeks gestation of (3) Smoker: Status: Acute OB-HPI Labor/Delivery History of Present Illness Reason for Visit: Labor Chief Complaint: Uterine Contractions; Scheduled Section , Inidcation for Scheduled : Unsuccessful Version .. RICHARD Calculator Estimated Delivery Date Method Current Current Estimate 10/13/21 LMP (Certain) 38w 6d History of Present Expected Delivery Route/Plan 31y at 38.6w with Rh+ GBS- presented in labor with planned C section on 10/08 due to breech presentation. . Review of Systems All systems reviewed & are unremarkable except as noted in HPI and below PFSH Active Problem List (Updated 10/05/21 @ 13:25 by Robby Farr) Breech presentation (Acute) (Acute) Smoker (Acute) Obesity (BMI 30-39.9) (Acute) uterine contractions (Acute) 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 in third trimester, antepartum (Acute) Medical History (Updated 10/05/21 @ 13:25 by Robby Farr) Vaginal bleeding during , antepartum Surgical History (Updated 07/23/21 @ 15:09 by Janet Strong DO) History of dilation and curettage Social History Smoking/Tobacco Use Status: Current every day Tobacco Type: cigarettes Smoking packs per day: 0.5 Smoking cigarettes per day: 10.0 Years smoked: 16 Smoking pack-years: 8.00 Tobacco: How many years used: 12 Smoking risk assessment performed?: Yes Alcohol Intake: never Drug use: Never Substance use type: does not use Do you feel safe at home: Yes Do you feel safe in your relationship?: Yes History History 17 Para 2 Hx # Term Pregnancies 2 Multiple births Hx # Pregnancies Ectopic pregnancies AB induced Hx Number of Living Children 2 AB spontaneous 14 Meds Allergies and Home Medications Allergies Allergy/AdvReac Type Severity Reaction Status Date / Time amitriptyline Allergy Intermediate Agitation Unverified 10/05/21 12:05 nortriptyline Allergy Intermediate Agitation Unverified 10/05/21 12:05 Home Medications Medication Instructions Recorded Confirmed Type fluoxetine 10 mg PO DAILY 02/04/13 10/05/21 History tramadol 50 mg PO Q4H PRN PRN #14 tab 02/04/13 10/05/21 Rx promethazine-codeine 5 ml PO Q4H #3 oz 08/14/13 10/05/21 Rx aspirin 81 mg PO 07/23/21 History [id number]-Ra-FA 1 tab PO 07/23/21 History clindamycin HCl 600 mg PO 4-6XD 10/05/21 10/05/21 History Exam Physical Exam Vital signs: Temp Pulse Resp BP 36.7 C 81 24 136/68 10/05/21 11:01 10/05/21 13:17 10/05/21 11:01 10/05/21 13:17 Vital Signs Reviewed: Yes Constitutional Constitutional: mild distress Detailed Labor and Delivery Exam Dilation: 2 station: -3 Position: Other Cervix position: posterior Consistency: soft Arce Score: Cervical Points Exam 0 1 2 3 Dilation Closed 1-2cm 3-4 cm 5-6cm Effacement 0-30% 40-50% 60-70% 80% Consistency Firm Medium Soft Station -3 -2 -1,0 +1,+2 Position Posterior Mid Anterior Amniotic Membrane Status: Intact Monitor Mode: External Contraction Intensity: Mild/Moderate Fetus A Heart Rate Baseline: 145 Monitor Accelerations: 15 X 15 Monitor Decelerations: None Variability: Moderate (6-25 BPM) Presentation: Breech Categories: Category I HEENT Exam HEENT Exam: Normal Chest/Brest/Axilla Exam Chest Exam: Normal Breast Exam Breast Exam: Abnormal (induration in medial aspect of left breast with tenderness) Respiratory Exam Respiratory Exam: Normal Cardiovascular Exam Cardiovascular Exam: Normal Extremities Exam Extremities Exam: Normal Back/Spine/Pelvis Exam Back Exam: Normal Neurological Exam Neurological Exam: Normal Psychiatric Exam Psychiatric Exam: Normal Results Results Group Beta Strep: Negative Blood Type: O+ Rubella Status: Immune Abnormal Lab Findings: Abnormal Labs 10/05/21 13:00 WBC 17.69 H RDW 15.6 H Risk Assessment Risk for Shoulder Dystocia Increased Risk?: No Risk for Pre-Eclampsia Daily Dose ASA Indicated: No Risk for Post- Hemorrhage At Risk?: No Counseled re: Active Management: Yes Risks Reviewed Risks Reviewed Upon Admission: Yes
[2021-10-05] MEDS: Sodium Citrate 30 ML CUP PO (13:27)
[2021-10-05] MEDS: AZITHROMYCIN 500 MG in Normal Saline 250 ML 250 MG IVPB (13:39)
[2021-10-05 14:09] LABS: COVID-19 PCR Negative (Negative)
--- NOTE | 2021-10-05 15:07 | PDOC.OPNB_ITS ---
Date of service: 10/05/21 Time of Service: 15:07 Operative Note Operative Note Delivery Method: Unscheduled STAT: No DATE OF PROCEDURE: 10/05/21 PRE-OP DIAGNOSES: breech presentation, labor POST-OP DIAGNOSES: same PROCEDURE: PLTCS SURGEON: Danyell Sr Food And Beverage Coordinator: Sol Jules Anesthesia: spinal Estimated blood loss (mL): 400 Pathology: none sent Complications: None Patient was transported to: floor Patient's condition: stable Indications: 38.6wks, breech presentation, failed ECV, contractions persistent despite IVF Procedure Description: After informed consent was signed the patient was taken to the operating room. She was given spinal anesthesia, SCDs were placed on her legs and a mcnamara catheter was introduced into her bladder. The heart rate was checked and was normal. She was then prepped and draped in the dorsal supi ne position with a leftward tilt. The patient was tested and spinal anesthesia was found to be adequate. A time out was performed. A skin incision was made with the scalpel and carried down to the underlying layer of fascia with blunt dissection. The fascia was incised on either side of the midline and the fascial incision extended laterally with a combination of sharp and blunt dissection. The inferior edge of the fascia was grasped with sia clamps and tented up and dissected down with a combination of sharp and blunt dissection. Then the superior edge of the fascial incision was grasped with sia clamps and tented up and dissected down with a combination of sharp and blunt dissection. The rectus muscles were in the midline and the peritoneum was entered bluntly. The peritoneal incision was extended laterally with blunt dissection. The bladder blade was inserted. A transverse incision was made in the lower uterine segment with the scalpel. The incision was ext ended superiorly and inferiorly with blunt pressure. The was noted to be in tiffanie breech presentation. The buttocks were delivered with fundal massage followed quickly by the torso and the arms rotated inwardly. The head was then quickly delivered in a flexed position. The cord was milked toward the baby and after 1min it was clamped x2 and cut. The baby was handed to the family doc. Cord blood was collected. The placenta delivered with fundal massage and gentle cord traction and appeared to be intact. The uterus was exteriorized and cleared of clots and debris. The uterine inc ision was closed with 0-vicryl in a running locked fashion with a second layer of suture imbricating the first. Good hemostasis was noted. The abdomen was irrigated. The uterus was placed back into the abdominal cavity. The incision was inspected once again and good hemostasis was noted. The peritoneum was closed with 3-0 vicryl in a running unlocked fashion. There was good hemostasis of the rectus muscles. The fascia was closed with 0-vicryl in a running unlocked fashion. The subcuticular layer was irrigated and the skin was closed with 4-0 vicryl in a running subcuticular fashion. The incision was cleaned. Mastisol and steristrips were placed. A dressing was placed. The fundus was palpated to be firm. The patient was moved to the stretcher and taken to the recovery room in stable condition. Infant Gender: Female Hemorrrhage Note Total Blood Loss for PPH Event Quantitative Blood Loss: 400
[2021-10-05] MEDS: Lactated Ringers 1,000 ML 200 ML IV (18:32)
[2021-10-05] MEDS: Oxytocin/Normal Saline 30 UNIT/500 ML BAG 95 UNITS IV (18:32)
[2021-10-05] MEDS: Ketorolac 30 MG/ML VIAL IVP (20:20)
[2021-10-06] MEDS: Ketorolac 30 MG/ML VIAL IVP ×3 (03:06→13:34)
[2021-10-06 04:29] VITALS: BP 99/60; PULSE 62; RESP 19; TEMP 36.7; O2SAT 96
[2021-10-06] MEDS: oxyCODONE 5 mg/Acetaminophen 325 mg TAB PO ×6 (07:37→22:16)
[2021-10-06] MEDS: Docusate Sodium 100 MG CAP PO ×2 (07:37→17:58)
[2021-10-06 07:46] VITALS: BP 97/58; PULSE 61; RESP 16; TEMP 36.8; O2SAT 97
[2021-10-06 08:07] LABS: Abs Immature Grans 0.17 10^3/uL (0.0-0.06); Absolute Eosinophil Count 0.26 10^3/uL (0.0-0.7); Absolute Lymphocyte Count 2.72 10^3/uL (1.2-3.4); Absolute Monocyte Count 0.63 10^3/uL (0.1-0.8); Basophils % 0.7; Eosinophils % 2.2; HCT 32.1 % (36.0-46.0); HGB 10.5 g/dL (11.2-15.7); Immature Grans % 1.4; Lymphocytes % 22.6; MCHC 32.7 % (32.0-36.0); MCV 85.6 fL (80-95); MPV 10.5 fL (8.0-11.0); Monocytes % 5.2; Neutrophils % 67.9; Nucleated RBC 0 %; Platelet Count 359 10^3/uL (130-400); RBC 3.75 10^6/uL (3.93-5.22); RDW 15.6 % (11.7-14.6); RDW-SD 48.4 fL; WBC 12.04 10^3/uL (4.4-10.8)
[2021-10-06 08:13] LABS: Absolute Basophil Count 0.08 10^3/uL (0.0-0.2); Absolute Neutrophil Count 8.18 10^3/uL (1.2-6.7)
[2021-10-06] MEDS: diphenhydrAMINE 25 MG CAP PO (08:13)
[2021-10-06] MEDS: Acetaminophen 325 MG TAB 650 MG PO (10:54)
--- NOTE | 2021-10-06 12:21 | W.PM.OBPNV1 ---
Date of service: 10/06/21 Time of Service: 12: Assessment and Plan Assessment and plan (1) Status post section routine follow-up: Status: Acute Assessment and plan: POD#1 doing very well. Routine care. Plan d/c home tomorrow. Subjective Subjective Patient comments: No complaints, Pain well controlled, Tolerating diet and Flatus present [place] baby status: Doing well and Rooming in feeding status: Exclusively breast feeding Exam Physical Exam Vital signs: Temp Pulse Resp BP Pulse Ox 98.3 F 61 16 97/58 L 97 10/06/21 07:46 10/06/21 07:46 10/06/21 07:46 10/06/21 07:46 10/06/21 07:46 Constitutional Constitutional: no acute distress and cooperative Detailed HEENT Exam Head: Present normocephalic and atraumatic Respiratory Exam Respiratory Exam: Normal Abdominal Exam Abdomen: Tender (mildly) Comments: Incision clean, dry, intact Fundal Exam Fundus: Below Umbilicus and Firm Extremities Exam Extremity Exam: negative Calf Tenderness and Edema Detailed Neurological Exam Neurological: Present alert, oriented X3 and CN II-XII intact Results Hemoglobin/Hematocrit: Hgb 10.5 g/dL (11.2-15.7) L 10/06/21 07:56 Hct 32.1 % (36.0-46.0) L 10/06/21 07:56 Abnormal Lab Findings: Abnormal Labs 10/05/21 10/06/21 13:00 07:56 WBC 17.69 H 12.04 H D RBC 3.75 L Hgb 10.5 L Hct 32.1 L RDW 15.6 H 15.6 H Absolute Neutrophils 8.18 H
[2021-10-06 13:00] VITALS: BP 115/71; PULSE 72; RESP 16; TEMP 36.7; O2SAT 96
[2021-10-06 17:33] VITALS: BP 110/65; PULSE 70; RESP 16; TEMP 36.9; O2SAT 97
[2021-10-06] MEDS: Ibuprofen 600 MG TAB PO (19:33)
[2021-10-06 20:27] VITALS: BP 113/67; PULSE 56; RESP 17; TEMP 36.7; O2SAT 96
--- NOTE | 2021-10-06 21:53 | W.ANESPOSTOP ---
Postoperative Evaluation Date, Time and Location Date Performed: 10/06/21 Time Performed: 20:30 Patient Location: Obstetrics Vital Signs Most Recent Imported Vital Signs: Most Recent Vital Signs Temp Pulse Resp BP Pulse Ox 36.7 C 56 L 17 113/67 96 10/06/21 20:27 10/06/21 20:27 10/06/21 20:27 10/06/21 20:10/06/21 20:27 Pain Score Most Recent Pain Score: Most Recent Pain Score Pain Level [Abdomen] 2 10/06/21 17:33 Assessment Mental Status: Awake (Alert & Oriented to Patient Baseline) Airway and Respiratory Function: Patent airway with normal (patient baseline) respiratory exam Cardiovascular Function: Hemodynamically Stable Hydration Status: Adequately Hydrated Nausea & Vomiting: No Nausea or Vomiting Pain: Pain is tolerable per patient Peripheral Nerve Block: Patient did not receive a nerve block
[2021-10-07] MEDS: oxyCODONE 5 mg/Acetaminophen 325 mg TAB PO ×3 (02:11→12:45)
[2021-10-07] MEDS: Ibuprofen 600 MG TAB PO ×2 (02:11→07:26)
[2021-10-07] MEDS: Docusate Sodium 100 MG CAP PO (07:26)
[2021-10-07 07:44] VITALS: BP 124/66; PULSE 61; RESP 16; TEMP 36.4; O2SAT 99
--- NOTE | 2021-10-07 10:50 | W.PM.OBDISCH ---
Date of service: 10/07/21 Time of Service: 10:51 DS: Diagnosis Discharge Diagnosis (1) Status post section routine follow-up: Status: Acute Discharge Plan Disposition Patient Disposition: HOME Condition: Stable Discharge Details Reason For Visit: Labor Admit Date/Time: 10/05/21 09:38 Admit Provider: Robby Farr Attending Provider: Robby Farr Primary Care Provider: None,None Hospital Course Hospital Course: Admitted with regular contractions unrelieved by IVF. Underwent PCS for breech presentation without complication. Routine post-op course. Some difficulty with breast-feeding and resolving left breast mastitis. Home Meds and New Rx's Prescriptions: No Action fluoxetine 10 MG capsule 10 mg PO DAILY RF: 0 tramadol 50 MG tablet 50 mg PO Q4H PRN PRNQty: 14 RF: 0 promethazine-codeine 5 ML syrup 5 ml PO Q4H Qty: 3 RF: 0 zujxdybf-rme-Ir-FA 1 mg Tablet 1 tab PO DAILY RF: 0 aspirin 81 mg Tablet,Chewable 81 mg PO PRN PRNRF: 0 clindamycin HCl 300 mg capsule 600 mg PO 4-6XD RF: 0 Discharge Instructions Stand Alone Forms: BC Instructions, BC Discharge Instruc Activity:: No lifting >20lbs Equipment/Supplies:: No Equipment Needed Diet:: As Tolerated Discharge Orders Discharge Orders: Discharge Order (Routine); Ordered 10/07/21 Ordered By: Danyell Sr OB:DS Summary Contraception Discussed Contraception Discussed: Yes Contraceptive Plan: Vasectomy, Gender-Baby A: Female weight: 6 lb 0.827 oz Status at Discharge Functional status at discharge: independent ambulation Overall status at discharge: patient is progressing back to baseline Mental Status: mental status grossly normal Speech and Movement: speech and movement normal Mood: congruent mood Affect: normal affect Exam Physical Exam Vital signs: Temp Pulse Resp BP Pulse Ox 97.6 F 61 16 124/66 99 10/07/21 07:44 10/07/21 07:44 10/07/21 07:44 10/07/21 07:44 10/07/21 07:44 Constitutional Constitutional: no acute distress and cooperative Detailed HEENT Exam Head: Present normocephalic and atraumatic Respiratory Exam Respiratory Exam: Normal Abdominal Exam Abdomen: Tender (mildly) Comments: Incision clean, dry, intact Fundal Exam Fundus: Below Umbilicus and Firm Extremities Exam Extremity Exam: Edema (1+); negative Calf Tenderness Detailed Neurological Exam Neurological: Present alert, oriented X3 and CN II-XII intact [facility] Active Problem List (Updated 10/07/21 @ 10:51 by Danyell Sr MD) Status post section routine follow-up (Acute) Smoker (Acute) Obesity (BMI 30-39.9) (Acute) Medical History (Updated 10/07/21 @ 10:51 by Danyell Sr MD) 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 in third trimester, antepartum Surgical History (Updated 10/06/21 @ 12:26 by Danyell Sr MD) History of dilation and curettage Social History Smoking/Tobacco Use Status: Current every day Tobacco Type: cigarettes Smoking packs per day: 0.5 Smoking cigarettes per day: 10.0 Years smoked: 16 Smoking pack-years: 8.00 Tobacco: How many years used: 12 Smoking risk assessment performed?: Yes Alcohol Intake: never Drug use: Never Substance use type: does not use Do you feel safe at home: Yes Do you feel safe in your relationship?: Yes History History 17 Para 2 Hx # Term Pregnancies 2 Multiple births Hx # Pregnancies Ectopic pregnancies AB induced Hx Number of Living Children 2 AB spontaneous 14 DS: Data Vitals/I&O Vitals and I&O: Vital Signs Temperature 97.6 F 10/07/21 07:44 Pulse 61 10/07/21 07:44 Pulse Rhythm Regular 10/07/21 07:49 Respiratory Rate 16 10/07/21 07:44 Respiratory Depth Normal 10/06/21 09:02 Blood Pressure 124/66 10/07/21 07:44 Blood Pressure Mean 85 10/07/21 07:44 Pulse Oximetry 99 10/07/21 07:44 Oxygen Delivery Method Room Air 10/05/21 11:01 Oxygen Flow Rate 0 10/05/21 11:01 Pain Level 5 10/07/21 07:44 Intake & Output 10/06/21 10/06/21 10/07/21 11:59 23:59 11:59 Intake Total 1000 / 1000 Output Total 800 / 1300 500 / 1300 Balance 200 / -300 -500 / -300 Intake: IV 1000 / 1000 Output: Urine 800 / 1300 500 / 1300 Other: Urine Color Light Lilian Yellow Yellow Urine Appearance Clear
== END 2021-10-07 12:50 | disposition home or self-care (01) | DRG 788 ==
PROVIDERS: Obstetrics & Gynecology; Admitting Provider Family Medicine; Visit Provider Family Medicine
PROC: 10D00Z1 Extraction of Products of Conception, Low, Open Approach (ICD-10-PCS; CPT 59514; principal; 2021-10-05 13:25)
DX: O32.1XX0 Maternal care for breech presentation, not applicable or unspecified (principal); O99.214 Obesity complicating childbirth; Z37.0 Single live birth; O99.334 Smoking (tobacco) complicating childbirth; Z3A.38 38 weeks gestation of pregnancy; O91.23 Nonpurulent mastitis associated with lactation; E66.9 Obesity, unspecified; F17.210 Nicotine dependence, cigarettes, uncomplicated; Z20.822 Contact with and (suspected) exposure to COVID-19
CPT/HCPCS: 59514; 36415; 85027; 86850; 86900; 86901; 87635; 85025; G0378; J0456; J0690; J1885; J2310; J2370; J2405; J3010